=== PATIENT | female | born 1980 | race Caucasian/White ===

== ENCOUNTER 2025-01-04 03:06 | Day surgery (SDC) | payer BC, SELFPAY ==
[2024-12-25 10:03] VITALS: BMI 23.5
--- NOTE | 2024-12-25 10:10 | PC.NURSE ---
[facility] has started construction of its new state of the art ER which will open Spring 2026. With this, we anticipate parking may be a challenge for some our surgical patients and families. Parking spaces are limited but are available for all Surgical, obstetrics, and ER patients sharing this lot. If you arrive and find you are having a hard time finding a parking space, please note that we understand the challenges, please drive around the hospital and park near Hospital Entrance 1. When you enter this entrance, you can ask a volunteer to direct or take you back to the surgical waiting area to check in. We appreciate everyone?s understanding of these expected challenges while we build for your future. Report to the Outpatient Waiting Room, entrance under the green pavilion located off [address], at time _0600_ on date _[id number]_. Planned Procedure Time: _0730_.? Time changes happen often and if your time is changed the preop area will call you the afternoon before. - You and your visitor will be asked to self-screen and do not enter if you have any COVID symptoms. Please call surgeon if you need to reschedule. - A mask is optional within the hospital at this time. Patients may have clear liquids (water, carbonated beverages, clear teas, apple juice) until 3 hours prior to surgery with a maximum of 20 ounces. - No food from midnight until time of surgery and no smoking, or chewing tobacco (or any form of nicotine). No chewing gum, candy or mints. Take only the following medications with a SIP of water on the morning of surgery: ____None DO NOT STOP ANY OF YOUR OTHER PRESCRIPTION MEDICATIONS PRIOR TO SURGERY EXCEPT THE FOLLOWING Hold all vitamins and supplements for 3 days per anesthesiologist. Medications to discontinue per physician Date to take last dose Please no make-up, nail ukrainian, hairspray, perfume, deodorant, or body powder the day of surgery.? No jewelry (including any body piercings) or valuables the day of surgery, leave them at home.? Please take a shower or bath the night before, or the morning of, surgery with an antibacterial soap.? Wear comfortable, loose fitting clothing.? - Jewelry must be removed prior to entering the operating room.? Rings and piercings that are not removed may be cut off. - The hospital will not accept responsibility for valuables.? - Please leave all valuables, including medications, at home the day of surgery. If you are going home after surgery, a licensed home delivery driver must drive you home.? - NO public transportation without another adult if you receive anesthesia. - We recommend that an adult stay with you for 24 hours following discharge. - We also recommend that you do not drive, make important decision, drink alcoholic beverages, or take any drugs that were not prescribed by your health care provider for at least 24 hours after your discharge time. Follow any additional instructions given to you from your surgeon. Telephone instructions given to __Chari___and asked if any additional questions and then verbalized understanding. Patient advised to call surgeon office or pre surgery nurse liaison [phone] if any additional questions.
--- NOTE | 2025-01-01 06:51 | PM.IMHP ---
H&P: HPI History of Present Illness Date/Time: 01/01/25 06:51 Chief Complaint: Excessive Bleeding Narrative: This is a 44-year-old female admitted for hysteroscopy/dilatation curettage/Celia ablation. She was not interested in any form of control she is a smoker and she declined use of IUD year any oral hormones. She understands that ablation is not a form of control. Risks and benefits of this procedure reviewed including not exclusive of , aspiration pneumonia, bleeding, transfusion, perforation injury to bowel, bladder, ureters, or other internal organs with need for open laparotomy. She received the ACOG handouts entitled hysteroscopy and dilatation curettage respectively. She had all questions answered. She asked to proceed. [facility] Social History Social History Smoking packs per day: 1 Smoking cigarettes per day: 20.0 Years smoked: 12 Smoking pack-years: 12.00 Smoking status: Current every day smoker Tobacco type: cigarettes Alcohol intake: current Substance use: never Living arrangements: with family Spiritual care concerns: No Meds Home Medications and Allergies Home Medications ?Medication ?Instructions ?Recorded ?Confirmed ?Type multivitamin (Daily Multi-Vitamin 1 tablet PO DAILY 12/25/24 12/25/24 History tablet) nortriptyline 25 mg capsule 25 mg PO HS 12/25/24 12/25/24 History omeprazole 20 mg tablet,delayed 40 mg PO DAILY 12/25/24 12/25/24 History release Allergies Allergy/AdvReac Type Severity Reaction Status Date / Time levofloxacin (From Levaquin) AdvReac Severe Nausea and Verified 12/25/24 10:01 Vomiting Exam Const: General: cooperative, healthy appearing, comfortable and well groomed Orientation/consciousness: oriented to person, oriented to place and oriented to time HENMT: Head: normal to inspection Resp: Effort & Inspection: normal respiratory effort Cardio: Rate: regular rate Rhythm: regular rhythm Heart sounds: S1 normal heart sound present and S2 normal heart sound present GI: Inspection: normal to inspection : External Female Exam: normal external appearance Speculum Exam - Vagina: normal appearance of the vagina Speculum Exam - Cervix: normal appearance of the cervix Bimanual exam- vagina & uterus: enlarged Bimanual Exam- Adnexa, other: normal adnexae Assessment and Plan Assessment and plan (1) Excessive bleeding: Code(s): R58 - Hemorrhage, not elsewhere classified Status: Acute Plan Proceed with hysteroscopy/dilatation curettage/Celia ablation
--- OUTSIDE RECORDS SUMMARY | 2025-01-04 03:10 | XMS_ITS | Patient Health Record ---
Author Organization [facility] Address [address] [place] [address] Care Team Providers Care Tomato Paste Maker Name Role Phone Rudolph Dela Cruz MD Primary Care Provider Unavail able ANTONI IN[employer]E T[employer] EXPERT, RHIANNON Unavailable Zack JULES, Shu Unavailable Unavailable Allergies Allergen (clinical drug ingredient) Drug/Non Drug Allergy documented on EMR Reaction Allergy Type Onset Date Status amoxicillin / clavulanate Augmentin Unknown Drug Allergy Active Levaquin Unknown Drug Allergy Active Reason For Referral No Information Medications Medication SIG (Take, Route, Frequency, Duration) Notes Start Date End Date Status ZyrTEC Allergy 10 MG 1 tablet Orally Once a day Active Omeprazole 40 MG 1 capsule 30 minutes before morning meal Orally Once a day Active Famotidine 20 MG 1 tablet at bedtime as needed Orally Once a day Active Vitamin D3 1.25 MG (21152 UT) 1 capsule Orally Active Social History Tobacco Use: Social History Observation Description Date Details (start date - stop date) Current Smoker NA - NA Tobacco Use/Smoking Question Answer Notes Are you a current smoker How often do you smoke cigarettes? every day How many cigarettes a day do you smoke? 6-10 Plan Of Treatment No Information Insurance Providers Payer Name Payer Address Payer Phone Subscriber Number Group Number Insured Name Patient Relationship to Insured Coverage Start Date Coverage End Date [facility] PPO [address] [place], [place] [id number] Chari Richards Self - patient is the insured Medical (General) History Medical History History ICD Code GERD IBS Vit D deficiency Surgical History Surgery Date(Month/Year) tympanostomy tubes
[2025-01-04 06:08] VITALS: BP 132/86; PULSE 88; RESP 16; TEMP 36.7; O2SAT 100
[2025-01-04] MEDS: ACETAMINOPHEN 500 MG TABLET 1000 MG PO (06:20)
[2025-01-04] MEDS: LACTATED RINGERS 1,000 ML 30 ML IV CONT (06:25)
--- NOTE | 2025-01-04 06:27 | WPDANESEPPF ---
Anes - Initial Pre Proc Eval Procedure: Operation Date: 01/04/25 07:30 Proposed Procedures p Hysteroscopy, Dilation and Curettage, Celia Endometrial Ablation - Guillermo Chiang MD Date/Time: 01/04/25 06:27 Surgeon: Guillermo Chiang MD Pre Op Diagnosis: excessive heavy bleeding Patient Data Age: 44 Gender: F Height: 1.7 m Weight: 68.2 kg Allergies Allergy/AdvReac Type Severity Reaction Status Date / Time levofloxacin (From Levaquin) AdvReac Severe Nausea and Verified 01/04/25 06:27 Vomiting Home Medications ?Medication ?Instructions ?Recorded ?Confirmed ?Type multivitamin (Daily Multi-Vitamin 1 tablet PO DAILY 12/25/24 12/25/24 History tablet) nortriptyline 25 mg capsule 25 mg PO HS 12/25/24 12/25/24 History omeprazole 20 mg tablet,delayed 40 mg PO DAILY 12/25/24 12/25/24 History release Patient hx anesthesia problems: none Family hx anesthesia problems: none Results Review: All pre-operative results and documents have been reviewed as part of the pre-operative evaluation. [facility] Social History Social History Smoking packs per day: 1 Smoking cigarettes per day: 20.0 Years smoked: 12 Smoking pack-years: 12.00 Smoking status: Current every day smoker Tobacco type: cigarettes Alcohol intake: current Substance use: never Living arrangements: with family Spiritual care concerns: No Anes - Eval Final PreProcedure Day of Procedure 01/04/25 06:27 Patient weight: normal Heart: regular rate and rhythm Lungs: clear to auscultation Airway: Mallampati scale class III Neurological: alert and oriented Last oral intake: >/= 8 hours ASA classification: II Emergent: no Anesthetic plan: proceed Anesthesia type and monitoring: general ETT and standard monitoring Results Review: All pre-operative results and documents have been reviewed as part of the pre-operative evaluation. Informed Consent: The patient's anesthetic plan and its attendant risks and benefits were discussed with the patient/family/POA. Questions were solicited and answers provided to the satisfaction of the patient/family/POA.
[2025-01-04 06:32] LABS: BEDSIDEPREGUCG Negative (Negative)
--- NOTE | 2025-01-04 06:32 | WPDHPUPDATE1 ---
History and Physical Update Update Date/Time: 01/04/25 06:32 History and Physical has been reviewed, including an updated exam of the patient. There are NO changes in the patient's condition. Risks, benefits, and alternatives have been discussed and questions answered. Patient agrees to proceed with procedure.
--- NOTE | 2025-01-04 07:37 | S_PTH ---
PATIENT: Chari Richards LOC: [facility] U#:[id number] AGE/SX: 44/F ROOM: RE01/04/[address]: Guillermo Chiang MD : 1980 BED: DIS: 01/04/2025 SPEC #: [id number] RECD: 01/04/25 07:45 STATUS: AMADO REQ #: [id number] LADAN: 01/04/25 07:[address]: Guillermo Alvarez DEPT: [facility] Surgical RECD BY: Terrie Espinoza ENTERED: 01/04/25 07:46 SP TYPE: Surgical OTHR DR: Rudolph Dela Cruz MD Tissues: A - Endometrial Curettings Procedures: Hematoxylin and Eosin Stain Gross and Microscopic Level 4
[2025-01-04] MEDS: KETOROLAC 30 MG/ML VIAL (*BKC) IV PUSH (07:43)
[2025-01-04] MEDS: LIDOCAINE 1% LOCAL INJ 10 ML VIAL INFILTRATE (07:44)
--- NOTE | 2025-01-04 07:45 | W.PM.PROC2 ---
Procedure Note - Detailed Date of Procedure 01/04/25 Pre-op Diagnosis excessive heavy bleeding Post-op Diagnosis Same Procedure Performed Hysteroscopy/dilatation curettage/Celia ablation Surgeon Guillermo Chiang MD Anesthesia MAC and Local Indications This is a 44-year-old female with excessive heavy bleeding Findings Uterus sounded 8cm. Thick endometrial tissue. No evidence of polyps or other definitive pathology. Each fallopian tube os could be seen. Description of Procedure Patient was prepped draped normal sterile fashion placed in the dorsal lithotomy position. Excellent IV sedation weighted speculum placed in posterior fornix vagina. Anterior lip of the cervix and grasped with a single-tooth tenaculum. 2.5cc 1% xylocaine anesthesia distributed at 2, 4, 8, 10:00 a.m. of the cervix. Uterus sounded to 8cm. Serial dilatation with fragmented dilators performed followed by passage of the 5mm visualizing hysteroscope. Normal saline was used as visualizing medium. Thick endometrial tissue was seen each fallopian tube os could be seen but no evidence of other pathological findings present. The uterus then scraped over the entire 360?. When a good grating sound was heard. The instrument was withdrawn. The Celia instrument was inserted into the uterus and burned for 120seconds this was then withdrawn and hysteroscope was then reinserted and a an excellent burn noted photo documentation undertaken the instruments withdrawn. Blood loss was estimated 5cc. All sponge, needle, instrument counts were correct. There were no immediate complications Estimated Blood Loss 5 Drains No Packing No Pathology Yes Complications No immediate complications Condition Stable Disposition PACU
[2025-01-04 07:49] VITALS: BP 122/67; PULSE 77; RESP 14; O2SAT 100
[2025-01-04 08:20] VITALS: BP 122/67; PULSE 77; RESP 20
[2025-01-04 08:50] VITALS: BP 116/69; PULSE 64; RESP 20
== END 2025-01-04 08:55 | disposition home or self-care (01) ==
PROVIDERS: PCP Pediatrics; Visit Provider Obstetrics & Gynecology
PROC: 0U5B8ZZ Destruction of Endometrium, Via Natural or Artificial Opening Endoscopic (ICD-10-PCS; CPT 58563; principal; 2025-01-04 07:30)
DX: N92.0 Excessive and frequent menstruation with regular cycle (principal); F17.210 Nicotine dependence, cigarettes, uncomplicated
CPT/HCPCS: 58563; 88305; A9270; J1885; J2003; J2250; J2405; J2704; J3010; J7120